=== PATIENT | male | born 1955 | race Caucasian/White ===

== ENCOUNTER 2018-12-09 14:35 | Emergency (ER) | payer OTHER ==
[~2018-12-09] VITALS: Ht 170.2 cm; Wt 92.3 kg
[2018-12-09] MEDS ORDERED: KETO10TA2 PO (14:57)
[2018-12-09] MEDS ORDERED: IBUP-2070 PO (14:57)
[2018-12-09] MEDS ORDERED: CYCLOBENZAPRINE HCL 10 MG TABLET PO ONE (15:45)
[2018-12-09] MEDS ORDERED: PERTUSS(ACELL),DIPH,TET VAC/PF 0.5 ML VIAL IM ONE (15:45)
[2018-12-09] MEDS ORDERED: BACITRACIN 0.9 GM PACKET OINTMENT TP ONE (17:00)
[2018-12-09 18:18] VITALS: BP 142/80
== END 2018-12-09 18:37 | disposition home or self-care (01) ==
LOC: EMS 14:37
DX: S80.811A Abrasion, right lower leg, initial encounter (principal); M54.5 Low back pain; Z79.899 Other long term (current) drug therapy; V49.9XXA Car occupant (driver) (passenger) injured in unspecified traffic accident, initial encounter; Y93.89 Activity, other specified; Y92.488 Other paved roadways as the place of occurrence of the external cause; Y99.8 Other external cause status
CPT/HCPCS: 72100; 72131; 90471; 90715